=== PATIENT | female | born 1960 | race Caucasian/White ===

== ENCOUNTER 2017-02-19 21:30 | Emergency (ER) | payer SELFPAY ==
--- NOTE | 2017-02-19 22:24 | ED CLINICAL REPORT ---
Clinical Report - Physicians/Mid Levels [facility] [address] [place] [address] 02/19/2017 21:30 Patient: FLYNN URIARTE Time Seen: 21:45. Arrived- Came in police custody. Historian- patient and police. HISTORY OF PRESENT ILLNESS Chief Complaint: clear to book. (the patient was brought in by the [place] [employer] to be evaluated before being taken to half-way. She denies any concerns medically.). REVIEW OF SYSTEMS No chills, fever, sweats, calf pain or chest pain. No cough, difficulty breathing, pedal edema, palpitations or abdominal pain. No constipation, diarrhea, nausea, vomiting or urinary problems. All systems otherwise negative, except as recorded above. SOCIAL HISTORY Never smoker. Occasional alcohol use. FAMILY HISTORY No significant family medical history. ADDITIONAL NOTES The nursing notes have been reviewed. PHYSICAL EXAM Vital Signs: 02/19/2017 21:33 BP: 123/83. HR: 80. RR: 15. O2 saturation: 99%. Temp: 97.7 F. Pain level now: 0/10. Have been reviewed. Appearance: Alert. Eyes: Pupils equal, round and reactive to light. ENT: Pharynx normal. Neck: Neck supple. CVS: Normal heart rate and rhythm. Heart sounds normal. Respiratory: No respiratory distress. Breath sounds normal. Abdomen: No visible injury. Soft and nontender. Bowel sounds normal. No organomegaly. No mass. Back: Normal inspection. Skin: Skin warm and dry. Normal skin color. Normal skin turgor. Extremities: Extremities exhibit normal ROM. No calf tenderness. No lower extremity edema. PROGRESS AND PROCEDURES Course of Care: Patient is stable. Patient/family counseled. Old medical records reviewed. Disposition: Discharged to half-way. Condition: stable. CLINICAL IMPRESSION Normal exam. INSTRUCTIONS Warnings: GENERAL WARNINGS: Return or contact your physician immediately if your condition worsens or changes unexpectedly, if not improving as expected, or if other problems arise. Follow-up: Follow up with your doctor as needed. Understanding of the discharge instructions verbalized by patient. (Electronically signed by Edin Odonnell MD 02/24/2017 21:18)
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
--- NOTE | 2017-02-19 22:24 | ED CLINICAL REPORT ---
Clinical Report - Physicians/Mid Levels [facility] [address] [place] [address] 02/19/2017 21:30 Patient: FLYNN URIARTE Time Seen: 21:45. Arrived- Came in police custody. Historian- patient and police. HISTORY OF PRESENT ILLNESS Chief Complaint: clear to book. (the patient was brought in by the [place] [employer] to be evaluated before being taken to detention. She denies any concerns medically.). REVIEW OF SYSTEMS No chills, fever, sweats, calf pain or chest pain. No cough, difficulty breathing, pedal edema, palpitations or abdominal pain. No constipation, diarrhea, nausea, vomiting or urinary problems. All systems otherwise negative, except as recorded above. SOCIAL HISTORY Never smoker. Occasional alcohol use. FAMILY HISTORY No significant family medical history. ADDITIONAL NOTES The nursing notes have been reviewed. PHYSICAL EXAM Vital Signs: 02/19/2017 21:33 BP: 123/83. HR: 80. RR: 15. O2 saturation: 99%. Temp: 97.7 F. Pain level now: 0/10. Have been reviewed. Appearance: Alert. Eyes: Pupils equal, round and reactive to light. ENT: Pharynx normal. Neck: Neck supple. CVS: Normal heart rate and rhythm. Heart sounds normal. Respiratory: No respiratory distress. Breath sounds normal. Abdomen: No visible injury. Soft and nontender. Bowel sounds normal. No organomegaly. No mass. Back: Normal inspection. Skin: Skin warm and dry. Normal skin color. Normal skin turgor. Extremities: Extremities exhibit normal ROM. No calf tenderness. No lower extremity edema. PROGRESS AND PROCEDURES Course of Care: Patient is stable. Patient/family counseled. Old medical records reviewed. Disposition: Discharged to detention. Condition: stable. CLINICAL IMPRESSION Normal exam. INSTRUCTIONS Warnings: GENERAL WARNINGS: Return or contact your physician immediately if your condition worsens or changes unexpectedly, if not improving as expected, or if other problems arise. Follow-up: Follow up with your doctor as needed. Understanding of the discharge instructions verbalized by patient. (Electronically signed by Edin Odonnell MD 02/24/2017 21:18)
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
--- NOTE | 2017-02-24 21:18 | ED MED RECONCILIATION SUMMARY ---
Patient: FLYNN URIARTE Medication Reconciliation Report [facility] VisitID: [id number] [address] [place] [address] 56y, F Registration Date/Time: 02/19/2017 Weight: 58.9 kg Height/Length: 62 in. BMI: 23.8 ALLERGIES: No Known Drug Allergy The patient's Home Medications are listed below: NONE. The source(s) of the original Home Medication information: Not obtained. The following Medications were given to the patient in the Emergency Department: None. The following Medications were prescribed to the patient: None.
--- NOTE | 2017-02-24 21:18 | ED MAR SUMMARY ---
..... Medication Administration Record [facility] [address] [place], [place] [id number] Patient: FLYNN URIARTE Visit ID: [id number] 56y, F Weight: 58.9 kg Height/Length: 62 in BMI: 23.8 ALLERGIES: No Known Drug Allergy
--- NOTE | 2017-02-24 21:18 | ED DISCHARGE INSTRUCTIONS ---
Patient: FLYNN URIARTE General Instructions [facility] VisitID: [id number] [address] [place] [address] 56y, F Registration Date/Time: 02/19/2017 Normal exam. INSTRUCTIONS Warnings: GENERAL WARNINGS: Return or contact your physician immediately if your condition worsens or changes unexpectedly, if not improving as expected, or if other problems arise. Follow-up: Follow up with your doctor as needed. Understanding of the discharge instructions verbalized by patient. ADDITIONAL INFORMATION Shelter Clearance You have been evaluated today for any illness or injury that may require special attention while you are in skilled nursing. It appears that your condition is stable at this time. You have been medically cleared for skilled nursing. Follow any special advice given regarding the care of any illness or injury present. Notify skilled nursing personnel if there is any worsening of your symptoms or if new symptoms appear. When you are released from skilled nursing, follow up with your own medical doctor or the clinic that you have been referred to. If you do not know where to go after you are released, contact us for referral information. You have been given the following additional information: Shelter Clearance (Electronically signed by Edin Odonnell MD 02/24/2017 21:18)
--- NOTE | 2017-02-24 21:18 | ED MAR SUMMARY ---
..... Medication Administration Record [facility] [address], [place] [id number] Patient: FLYNN URIARTE Visit ID: [id number] 56y, F Weight: 58.9 kg Height/Length: 62 in BMI: 23.8 ALLERGIES: No Known Drug Allergy
--- NOTE | 2017-02-24 21:18 | ED MED RECONCILIATION SUMMARY ---
Patient: FLYNN URIARTE Medication Reconciliation Report [facility] VisitID: [id number] [address] [place] [address] 56y, F Registration Date/Time: 02/19/2017 Weight: 58.9 kg Height/Length: 62 in. BMI: 23.8 ALLERGIES: No Known Drug Allergy The patient's Home Medications are listed below: NONE. The source(s) of the original Home Medication information: Not obtained. The following Medications were given to the patient in the Emergency Department: None. The following Medications were prescribed to the patient: None.
--- NOTE | 2017-02-24 21:18 | ED DISCHARGE INSTRUCTIONS ---
Patient: FLYNN URIARTE General Instructions [facility] VisitID: [id number] [address] [place] [address] 56y, F Registration Date/Time: 02/19/2017 Normal exam. INSTRUCTIONS Warnings: GENERAL WARNINGS: Return or contact your physician immediately if your condition worsens or changes unexpectedly, if not improving as expected, or if other problems arise. Follow-up: Follow up with your doctor as needed. Understanding of the discharge instructions verbalized by patient. ADDITIONAL INFORMATION Nursing Home Clearance You have been evaluated today for any illness or injury that may require special attention while you are in [facility]. It appears that your condition is stable at this time. You have been medically cleared for [facility]. Follow any special advice given regarding the care of any illness or injury present. Notify [facility] personnel if there is any worsening of your symptoms or if new symptoms appear. When you are released from [facility], follow up with your own medical doctor or the clinic that you have been referred to. If you do not know where to go after you are released, contact us for referral information. You have been given the following additional information: Nursing Home Clearance (Electronically signed by Edin Odonnell MD 02/24/2017 21:18)
== END 2017-02-19 23:07 | disposition home or self-care (01) ==
LOC: ED SRH 21:30
DX: Z02.89 Encounter for other administrative examinations (principal)